=== PATIENT | female | born 1990 | race Caucasian/White ===

== ENCOUNTER 2018-07-29 09:18 | Emergency (ER) | payer MEDICAID ==
[~2018-07-29] VITALS: Ht 160 cm; Wt 73.3 kg
[~2018-07-29 09:18] MED LIST: CALC1TAB98 PO; FERR240T9 PO; IBUP-1542 PO; PRENAT PO
[2018-07-29 09:20] VITALS: BP 131/61; PULSE 61; RESP 18; Ht 160 cm; Wt 73.3 kg
[2018-07-29] MEDS ORDERED: ONDANSETRON (ODT) 4 MG TAB ODT STA (09:56)
[2018-07-29] MEDS ORDERED: BELLADONNA/PHENOBARBITAL TAB PO ONE (10:00)
[2018-07-29] MEDS ORDERED: LIDOCAINE/MYLANTA 40 ML BTL PO ONE (10:00)
[2018-07-29] MEDS ORDERED: FAMOTIDINE 20 MG TAB PO ONE (10:00)
[2018-07-29] MEDS ORDERED: ONDA4TAB14 PO (12:18)
[2018-07-29] MEDS ORDERED: FAMO-96 PO (12:18)
--- NOTE | 2018-07-29 15:23 | ERD ---
ER Documentation Chief Complaint Chief Complaint STOMACH PAIN FOR 4 DAYS WITH NAUSEA, NO V/D HPI History of Present Illness: 27-year-old female with no past medical history coming in today with complaint of abdominal pain that is been present for 4 days. Associated symptoms includes nausea, fatigue. Patient denies constipation, last bowel movement was yesterday Denies vomiting or diarrhea. Patient reports pain particular area (epigastric and right upper quadrant) last month, but it was not severe. Patient reports that she noticed pain occurred after eating. At home pharmacological/nonpharmacological treatment for symptoms: Denies Denies social concerns; Denies recent foreign travel ROS All systems reviewed and are negative except as per history of present illness. Medications Home Meds Active Scripts Ondansetron (Ondansetron Odt) 4 Mg Tab.rapdis, 4 MG PO Q8 PRN for NAUSEA AND/OR VOMITING, #10 TAB Prov:SUE DIAZ NP 07/29/18 Famotidine* (Pepcid*) 20 Mg Tablet, 40 MG PO BID for acid reflux, #30 TAB Prov:SUE DIAZ NP 07/29/18 Ibuprofen* (Ibuprofen*) 600 Mg Tablet, 600 MG PO .ONCE PRN for Mild Pain (Pain Score 1-3), #20 TAB 0 Refills Prov:EDIS MEJÍA MD 10/01/15 Reported Medications Calcium Carbonate-Vitamin D3 (Calcium + D 600 Tablet) 1 Tab Tablet, 1 TAB PO DAILY, TAB 09/30/15 Ferrous Gluconate (Iron) 1 Tab Tablet, 1 TAB PO, TAB 09/30/15 Multivit/Min/Fol Ac/Iron/Pren* ( S*) 1 Tab Tab, 1 TAB PO DAILY, TAB 09/30/15 Allergies Allergies: Coded Allergies: No Known Drug Allergies (Verified Allergy, Unknown, 09/30/15) PMhx/Soc Medical and Surgical Hx: pt denies Medical Hx, pt denies Surgical Hx Hx Alcohol Use: No Hx Substance Use: No Hx Tobacco Use: No Smoking Status: Never smoker FmHx Family History: No diabetes, No coronary disease Physical Exam Vitals Vital Signs Date Temp Pulse Resp B/P (MAP) Pulse Ox O2 O2 Flow FiO2 Time Delivery Rate 07/29/18 97.9 61 18 131/61 97 09:20 (84) Physical Exam Const: No acute distress Head: Atraumatic Eyes: Normal Conjunctiva ENT: Normal External Ears, Nose and Mouth. Neck: Full range of motion. No meningismus. Resp: Clear to auscultation bilaterally Cardio: Regular rate and rhythm, no murmurs Abd: Soft, tenderness to palpation to epigastric and right upper quadrant, non distended. Normal bowel sounds. Skin: No petechiae or rashes Back: No midline or flank tenderness Ext: No cyanosis, or edema Neur: Awake and alert Psych: Normal Mood and Affect Result Diagram: 07/29/18 1002 07/29/18 1002 Results 24 hrs Laboratory Tests Test 07/29/18 09:46 07/29/18 10:02 07/29/18 10:03 POC Beta HCG, Qualitative NEGATIVE White Blood Count 9.5 10^3/ul Red Blood Count 4.73 10^6/ul Hemoglobin 14.5 g/dl Hematocrit 42.9 % Mean Corpuscular Volume 90.7 fl Mean Corpuscular Hemoglobin 30.7 pg Mean Corpuscular 33.8 g/dl Hemoglobin Concent Red Cell Distribution Width 12.2 % Platelet Count 253 10^3/UL Mean Platelet Volume 10.3 fl Immature Granulocytes % 0.300 % Neutrophils % 63.5 % Lymphocytes % 24.8 % Monocytes % 6.4 % Eosinophils % 4.6 % Basophils % 0.4 % Nucleated Red Blood Cells % 0.0 /100WBC Immature Granulocytes # 0.030 10^3/ul Neutrophils # 6.0 10^3/ul Lymphocytes # 2.4 10^3/ul Monocytes # 0.6 10^3/ul Eosinophils # 0.4 10^3/ul Basophils # 0.0 10^3/ul Nucleated Red Blood Cells # 0.0 10^3/ul Sodium Level 144 mmol/L Potassium Level 4.4 mmol/L Chloride Level 110 mmol/L Carbon Dioxide Level 25 mmol/L Anion Gap 9 Blood Urea Nitrogen 18 mg/dl Creatinine 0.49 mg/dl Est Glomerular Filtrat > 60 mL/min Rate mL/min Glucose Level 86 mg/dl Calcium Level 9.9 mg/dl Total Bilirubin 0.7 mg/dl Direct Bilirubin 0.00 mg/dl Indirect Bilirubin 0.7 mg/dl Aspartate Amino 20 IU/L Transf (AST/SGOT) Alanine 23 IU/L Aminotransferase (ALT/SGPT) Alkaline Phosphatase 85 IU/L Total Protein 7.0 g/dl Albumin 4.2 g/dl Globulin 2.80 g/dl Albumin/Globulin Ratio 1.50 Lipase 67 U/L Urine Color YELLOW Urine Clarity SLIGHTLY CLOUDY Urine pH 8.0 Urine Specific [place] 1.016 Urine Ketones NEGATIVE mg/dL Urine Nitrite NEGATIVE mg/dL Urine Bilirubin NEGATIVE mg/dL Urine Urobilinogen NEGATIVE mg/dL Urine Leukocyte Esterase NEGATIVE Soila/ul Urine Microscopic RBC 1 /HPF Urine Microscopic WBC 1 /HPF Urine Squamous Epithelial Cells MODERATE /HPF Urine Bacteria FEW /HPF Urine Hemoglobin NEGATIVE mg/dL Urine Glucose NEGATIVE mg/dL Urine Total Protein NEGATIVE mg/dl Current Medications Medications Dose Sig/Codie Start Time Status Last (Trade) Ordered Route PRN Stop Time Admin Dose Reason Admin Ondansetron 4 mg ONCE STAT 07/29/18 DC 07/29/18 HCl (Zofran ODT 09:56 10:00 Odt) 07/29/18 09:57 40 ml ONCE ONCE 07/29/18 DC 07/29/18 Miscellaneous PO 10:00 10:00 Medication 07/29/18 10:01 (Gi Cocktail (2)) Belladonna/ 1 tab ONCE ONCE 07/29/18 DC 07/29/18 Phenobarbital PO 10:00 10:00 () 07/29/18 10:01 Famotidine 20 mg ONCE ONCE 07/29/18 DC 07/29/18 (Pepcid) PO 10:00 10:00 07/29/18 10:01 Procedures/MDM ED course includes a thorough examination and history. Medications: GI cocktail with , Pepcid Imaging: Gallbladder ultrasound Labs: Urine , CBC, CMP, lipase Low suspicion for life-threatening medical emergency. Otherwise healthy patient presenting with constellation of symptoms likely representing uncomplicated abdominal pain/acid reflux as characterized by history, physical exam findings, lab findings, imaging finding. CBC:no e/o of systemic infection or severe anemia. CMP:no e/o severe acidosis, alkalosis, renal failure, diabetic ketoacidosis, liver disease. Urinalysis without any signs of infection; few bacteria noted but moderate epithelial cells so likely a dirty catch sample. Lipase normal. Urine negative. Ultrasound results showing: IMPRESSION: 1. Coarsened, heterogeneous hepatic echotexture which may reflect diffuse steatosis. RPTAT: AACC Amos Villalobos, Physician No respiratory distress, otherwise relatively well appearing and nontoxic. Patient reassessment disposition: Patient denies pain. Reports medications has helped her. Patient relates understanding of labs and imaging studies. Patient verbalizes understanding of follow-up for possible fatty liver diagnosis. Patient educated on diagnoses, prescriptions, follow-up care, return precautions. Strict return precautions given for worsening condition; questions answered discharge. Disposition for discharge with followup in 2 days with PCP/clinic. Departure Diagnosis: Primary Impression: Abdominal pain Abdominal location: unspecified location Qualified Codes: R10.9 - Unspecified abdominal pain Additional Impressions: Fatty liver Acid reflux Condition: Stable Patient Instructions: Abdominal Pain, Gerd (Adult) Referrals: [facility] Usted se huang hecho un examen mdico de control que le indica que no est en kirk condicin que requiera tratamiento urgente en el Departamento de Emergencia. Un estudio ms profundo y el tratamiento de neville condicin pueden esperar sin ningn riesgo hasta que usted sea atendida/o en el consultorio de neville mdico o kirk clnica. Es responsabilidad suya arreglar kirk iesha para el seguimiento del riya. MANEJO DE CONDICIONES NO URGENTES EN EL FUTURO 1) Si usted tiene un mdico de atencin primaria: Usted debera llamar a neville mdico de atencin primaria antes de venir al departamento de emergencia. Despus de las horas de consultorio, neville doctor o neville asociado/a est disponible por telfono. El mdico o enfermero de jameel en el servicio telefnico puede asesorarle por jose medio para atender el problema, o riya contrario se puede programar kirk iesha. 2) Si usted no tiene un mdico de atencin primaria: Llame al mdico o clnica de referencia que aparece abajo gilma las horas de consultorio para hacer kirk iesha para que le vean. CLINICAS: [facility] [phone] [facility] [phone] [facility] [phone] [place] [id number] [phone] [facility]. [place] [phone] [facility]. [phone] [facility]. [facility] () Usted se huang hecho un examen mdico de control que le indica que no est en kirk condicin que requiera tratamiento urgente en el Departamento de Emergencia. Un estudio ms profundo y el tratamiento de neville condicin pueden esperar sin ningn riesgo hasta que ted sea atendida/o en el consultorio de neville mdico o kirk clnica. Es responsabilidad suya arreglar kirk iesha para el seguimiento del riya. MANEJO DE CONDICIONES NO URGENTES EN EL FUTURO 1) Si usted tiene un mdico de atencin primaria: ted debera llamar a neville mdico de atencin primaria antes de venir al departamento de emergencia. Despus de las horas de consultorio, neville doctor o neville asociado/a est disponible por telfono. El mdico o enfermero de jameel en el servicio telefnico puede asesorarle por jose medio para atender el problema, o riya contrario se puede programar kirk iesha. 2) Si usted no tiene un mdico de atencin primaria: Llame al mdico o condado institucions de referencia que aparece abajo gilma las horas de consultorio para hacer kirk iesha para que le vean. SI USTED NO PUEDE PAGAR PARA FRANCHESKA UN MEDICO puede ir a: [facility] [address] [place] [address] [facility] [address] [place] [address] [facility] [address] [place] [address] [facility] [address] [place], [place] [id number] Additional Instructions: Muchas jamal por permitirnos participar en neville cuidado. Neville jennie y seguridad es nuestra principal prioridad en [facility]. Es importante leer todas las instrucciones de gwendolyn y la educacin que se proporcionan en neville paquete de gwendolyn. Llame a neville mdico de atencin primaria MAANA para kirk iesha gilma los prximos 2 a 4 bonilla y lleve toda la informacin y los medicamentos recetados. Llene las recetas y siga exactamente las instrucciones de la etiqueta. -La famotidina es un medicamento que ayuda con el reflujo cido; tome charito medicamento segn lo prescrito para las prximas 1 a 2 semanas con el almuerzo y la manager community. Informe a neville mdico de atencin primaria si las nuseas ya no estn presentes con charito medicamento. Si es as, es muy probable que neville reflujo cido est causando chloé nuseas. -Zofran es un medicamento para las nuseas / vmitos; tome charito medicamento segn sea necesario para las nuseas / vmitos / disminucin del apetito. Utiliza medicamentos solo si la famotidina no funciona. Si los sntomas empeoran y nevlile proveedor no est disponible, regrese inmediatamente al Departamento de Emergencias. --- Thank you very much for allowing us to participate in your care. Your health and safety is our top priority at [facility]. It is important to read all discharge instructions and education provided in your discharge packet. Call your primary care doctor TOMORROW for an appointment during the next 2-4 days and bring all the information and medications prescribed. Have prescriptions filled and follow precisely the directions on the label. -Famotidine is a medication that will help with acid reflux; take this medication as prescribed for the next 1 to 2 weeks with lunch and dinner. Report to your primary care doctor if the nausea is no longer present with this medication. If so, it is highly likely that your acid reflux is causing your nausea. -Zofran is a medication for nausea/vomitting; take this medication as needed for nausea/vomiting/decreased appetite. Uses medication only if the famotidine is not working. If the symptoms get worse and your provider is unavailable, return to the Emergency Department immediately. SUE DIAZ NP Jul 29, 2018 15:23
== END 2018-07-29 12:38 | disposition home or self-care (01) ==
LOC: FTE 09:18
DX: K21.9 Gastro-esophageal reflux disease without esophagitis (principal); K76.0 Fatty (change of) liver, not elsewhere classified
CPT/HCPCS: 76705; 80053; 81001; 81025; 83690; 85025; Z7502; Z7610; 81003